=== PATIENT | female | born 1995 | race Caucasian/White ===

== ENCOUNTER 2020-04-05 07:32 | Outpatient (CLI) | payer BC, OTHER ==
[2020-04-05 11:20] LABS: #Basophils 0.1 thou/uL (0.0-0.2); #Eosinphils 0.1 thou/uL (0.0-0.7); #Lymphocytes 2.1 thou/uL (1.20-3.40); #Monocytes 0.6 thou/uL (0.11-0.59); #Neutrophils 5.4 thou/uL (1.40-6.50); %Basophils 0.7 % (0.0-1.0); %Eosinophils 1.4 % (0.0-10.0); %Lymphocytes 25.1 % (21.0-51.0); %Monocytes 6.9 % (0.0-10.0); Hemoglobin 14.5 g/dL (12.0-16.0); Mean Corpuscular Volume 90.9 fL (78.0-98.0); Mean Platelet Volume 9.8 fL (7.4-10.4); Platelet Count 236 thou/uL (130-400); RBC Distribution Width 11.8 % (11.5-14.5); Red Blood Cell (RBC) Count 4.83 mill/uL (4.20-5.40); White Blood Cell (WBC) Count 8.2 thou/uL (4.8-10.8)
[2020-04-05 11:36] LABS: BHCG - Serum Negative (NEGATIVE); Pregs Control Background? CLEAR/WHITE (CLR/WHITE); Pregs Control Bar Appear? YES (CONTROL BAR)
[2020-04-05 11:49] LABS: ALT (SGPT) 50 U/L (8-55); AST (SGOT) 21 U/L (5-34); Albumin 4.3 g/dL (3.5-5.0); Alkaline Phosphatase 70 U/L (40-110); Anion Gap 14 mmol/L (10-20); BUN (Urea Nitrogen) 11 mg/dL (7.0-18.7); Bilirubin, Total 0.3 mg/dL (0.2-1.2); Calc. Creatinine Clearance 0 mL/min (70-130); Calcium 8.7 mg/dL (7.8-10.44); Carbon Dioxide 24 mmol/L (22-29); Chloride 105 mmol/L (98-107); Estimated GFR-MDRD 90; Globulin 2.7 g/dL (2.4-3.5); Glucose 84 mg/dL (70-105); Potassium 4.2 mmol/L (3.5-5.1); Sodium 139 mmol/L (136-145)
[2020-04-05 17:57] LABS: SARS-CoV-2 MS2 Positive; SARS-CoV-2 N Gene Negative; SARS-CoV-2 S Gene Negative; SARS-CoV-2 by NAA Not Detected (NotDetected); SARS-CoV-2 orf1ab Negative
== END 2020-04-05 07:33 | disposition home or self-care (01) ==
LOC: LABBT 07:32
PROVIDERS: ATTEND Specialist
DX: Z01.812 Encounter for preprocedural laboratory examination (principal); Z20.828 Contact with and (suspected) exposure to other viral communicable diseases; K82.8 Other specified diseases of gallbladder
CPT/HCPCS: 80053; 84703; 85025; 87635; U0003

== ENCOUNTER 2020-04-08 07:36 | Day surgery (SDC) | payer BC, OTHER ==
[2020-04-05 15:08] VITALS: BMI 23.3
[2020-04-08] MEDS ORDERED: Acetaminophen 500 MG TAB ONE (08:03)
[2020-04-08] MEDS ORDERED: Ketorolac Tromethamine 30 MG/ML VIAL ONE (08:03)
[2020-04-08] MEDS ORDERED: Iothalamate Meglumine 60% 50 ML VIAL FS ONE (08:14)
[2020-04-08] MEDS ORDERED: Bupivacaine 0.25% HCL 30 ML VIAL ONE (08:14)
[2020-04-08] MEDS ORDERED: Lidocaine 1% w/Epinephrine 1:100K 20 ML VIAL ONE (08:14)
[2020-04-08] MEDS ORDERED: Midazolam HCl 2 mg/2 ml Vial ONE (09:43)
[2020-04-08] MEDS ORDERED: Fentanyl 100 MCG/2 ML VIAL ONE ×2 (09:43→11:16)
[2020-04-08] MEDS ORDERED: HYDROmorphone 0.5 MG/0.5 ML SYRINGE ONE (09:56)
[2020-04-08] MEDS ORDERED: Lidocaine 2% Jelly 5 ML TUBE ONE (09:56)
[2020-04-08] MEDS ORDERED: Rocuronium Bromide 10 MG/ML (10ML VIAL) ONE (10:06)
[2020-04-08] MEDS ORDERED: Ondansetron PF 4 MG/2 ML Vial ONE ×2 (10:06→11:16)
[2020-04-08] MEDS ORDERED: PROPOFOL 200 MG/20 ML VIAL ONE (10:06)
[2020-04-08] MEDS ORDERED: Glycopyrrolate 0.2 MG/ML 5 ML SYRINGE ONE (10:06)
[2020-04-08] MEDS ORDERED: Lidocaine 1% PF 5 ML VIAL ONE (10:06)
[2020-04-08] MEDS ORDERED: Dexamethasone 20 MG/5 ML VIAL ONE (10:06)
[2020-04-08] MEDS ORDERED: Promethazine HCl 25 MG/ML VIAL ONE ×2 (11:33→12:21)
--- NOTE | 2020-04-08 15:36 | OP ---
DATE OF PROCEDURE: 04/08/2020 PREOPERATIVE DIAGNOSIS: Biliary dyskinesia. POSTOPERATIVE DIAGNOSIS: Biliary dyskinesia. PROCEDURE PERFORMED: Laparoscopic cholecystectomy. SPORTS MEDICINE COORDINATOR: Jayne Flores, medical student. ANESTHESIA: General endotracheal per Mark Rubio CRNA INDICATIONS: The patient is a 24-year-old otherwise healthy white female with multiple GI complaints. Many of these are potentially referable to the gallbladder. She has been found to have evidence of biliary dyskinesia with a markedly depressed ejection fraction. After discussion of options, she has decided to proceed with laparoscopic cholecystectomy in hopes of alleviating some of her symptoms. DESCRIPTION OF PROCEDURE: Informed consent was obtained. The patient was taken to the operating room where general endotracheal anesthesia was obtained with the patient in the supine position. The abdomen was prepped with Betadine and draped in the usual sterile fashion. 0.25% Marcaine with epinephrine was infiltrated below the umbilicus and a 10 mm infraumbilical incision was created. A Veress needle was passed through this incision into the peritoneal cavity. A pneumoperitoneum was established using carbon dioxide up to a pressure of 15 mmHg. Local anesthetic was infiltrated and 3 additional 5 mm right upper quadrant incisions were created. Through the mid incision, a 5 mm port was passed into the peritoneal cavity. The camera was passed through this port and under direct vision, an 11 port was passed through the infraumbilical incision. The camera was replaced through this port, and under direct vision, 2 additional 5 mm ports were passed through the incisions already created. The gallbladder was grasped and retracted in a cephalad direction. Minimal adhesions were bluntly stripped away from the apex of the gallbladder, and the apex was retracted laterally and inferiorly. Careful dissection was carried out to the apex of the gallbladder to identify the cystic duct and cystic artery. These were each carefully dissected circumferentially. The duct was of normal caliber. Both the duct and the artery were divided between clips, leaving 2 on the side to remain within the abdomen. The gallbladder was then dissected out of the gallbladder fossa using electrocautery and removed through the infraumbilical port site. The fascia was closed with 0 Vicryl suture and a GraNee needle. The right upper quadrant was inspected and irrigated. All irrigant was aspirated. All ports and instruments were removed under direct vision. Pneumoperitoneum was carefully evacuated. Additional local anesthetic was infiltrated into each port site. The skin edges were approximated with 4-0 Monocryl subcuticular sutures, and Dermabond was placed externally. There were no complications. The patient tolerated the procedure well and was taken to the recovery room in stable condition. FINDINGS: There was no evidence of gallbladder inflammation. The gallbladder, however, was distended and was decompressed with a decompression needle prior to removing the gallbladder. The duct and artery were both small and noninflamed. There were no complications. Blood loss was essentially none. The patient tolerated the procedure well and was taken to recovery room in stable condition. Job ID: [id number]
== END 2020-04-08 14:00 | disposition home or self-care (01) ==
LOC: SDC 07:36
PROVIDERS: ATTEND Specialist
PROC: 0FT44ZZ Resection of Gallbladder, Percutaneous Endoscopic Approach (ICD-10-PCS; principal; 2020-04-08)
DX: K81.1 Chronic cholecystitis (principal); K82.8 Other specified diseases of gallbladder; K21.9 Gastro-esophageal reflux disease without esophagitis; Z79.899 Other long term (current) drug therapy
CPT/HCPCS: 88304; J0690; J1100; J1170; J1885; J2250; J2405; J2550; J2704; J3010; S0020